=== PATIENT | male | born 1965 | race Caucasian/White ===

== ENCOUNTER 2018-05-01 17:23 | Emergency (ER) | payer MEDICAID ==
[~2018-05-01] VITALS: Ht 188 cm; Wt 109.1 kg
[2018-05-01] MEDS ORDERED: PROP20TA18 PO (17:38)
[2018-05-01] MEDS ORDERED: LISI-662 PO (17:38)
[2018-05-01] MEDS ORDERED: PROPRANOLOL HCL 10 MG TABLET PO ONE (18:00)
[2018-05-01] MEDS ORDERED: LISINOPRIL 10 MG TABLET PO ONE (18:00)
[2018-05-01 18:31] VITALS: BP 151/98
== END 2018-05-01 18:45 | disposition home or self-care (01) ==
LOC: EMS 17:24
DX: I10 Essential (primary) hypertension (principal)

== ENCOUNTER 2018-05-31 22:12 | Emergency (ER) | payer MEDICAID ==
[~2018-05-31] VITALS: Ht 188 cm; Wt 118.2 kg
[~2018-05-31 22:12] MED LIST: LISI-662 PO; PROP20TA18 PO
[2018-05-31 22:14] VITALS: BP 186/128
[2018-05-31] MEDS ORDERED: CICL34.62 TP (22:19)
== END 2018-05-31 22:31 | disposition left against medical advice (07) ==
LOC: EMS 22:12
DX: Z76.0 Encounter for issue of repeat prescription (principal); Z53.21 Procedure and treatment not carried out due to patient leaving prior to being seen by health care provider